=== PATIENT | female | born 1940 | race Caucasian/White ===

== ENCOUNTER → 2018-01-25 | Outpatient (CLI) | payer MEDICARE, BC ==
--- NOTE | 2018-01-25 16:38 | BD ---
EXAMINATION TYPE: Axial Bone Density DATE OF EXAM: 01/25/2018 COMPARISON: NONE CLINICAL HISTORY: 77-year-old female postmenopausal screening for osteoporosis Height: 4 FT 11 1/2 IN Weight: 91 FRAX RISK QUESTIONS: History of Fracture in Adulthood: YES Secondary Osteoporosis: 3. Menopause before 45: YES Current Tobacco Use: YES RISK FACTORS HISTORY OF: Spine Fracture: LUMBAR FX When: 7 YEARS AGO Family History of Osteoporosis: YES Active: YES Postmenopausal woman: BETWEEN AGE [age] Lost more than 2 inches in height since high school: YES MEDICATIONS: Osteoporosis Medications: YES Which medication: FOSAMAX How Lon YEARS Additional Medications: FOSAMAX, ZETIA, LISINOPRIL, BYSTOLIC, CALCIUM, MAGNESIUM, ZINC, VIT D Additional History: EXAM MEASUREMENTS: Bone mineral densitometry was performed using the [employer] System. Bone mineral density as measured about the Lumbar spine is: ----- L1-L4(G/cm2): 1.054 T Score Values are as follows: ----- L2: -1.6 ----- L3: -1.3 ----- L4: -0.1 ----- L1-L4: -1.0 Bone mineral density has: INCREASED 29.3 % since study of: 2004 Bone mineral density about the R hip (g/cm2): 0.590 Bone mineral density about the L hip (g/cm2): 0.574 T Score values are as follows: -----R Neck: -3.2 -----L Neck: -3.3 -----R Total: -3.1 -----L Total: -3.1 Bone mineral density has: DECREASED -11.0 % since study of: 2004 IMPRESSION: Osteoporosis (T Score less than -2.5). There is increased fracture risk and therapy is usually indicated based on age. Re-Screen 1-2 years. NOTE: T-SCORE=SD OF THE YOUNG ADULT MEAN.
== END | disposition home or self-care (01) ==
LOC: RADBDWWP 09:21
PROVIDERS: ATTEND Family Medicine
DX: M81.0 Age-related osteoporosis without current pathological fracture (principal)
CPT/HCPCS: 77080

== ENCOUNTER → 2022-11-14 | Outpatient (CLI) | payer MEDICARE, BC ==
--- NOTE | 2022-11-14 18:10 | CT ---
EXAMINATION TYPE: CT brain w con DATE OF EXAM: 11/14/2022 COMPARISON: NONE HISTORY: TIA CT DLP: 1133.3 mGycm Automated exposure control for dose reduction was used. CONTRAST: CT scan of the head is performed with IV Contrast, patient injected with 80 cc mL of Isovue 300. FINDINGS: There is no abnormal enhancing mass or midline shift identified. The ventricles and sulci are within normal limits in size. The globes are intact and the visualized sinuses are clear. IMPRESSION: Negative contrast enhanced head CT exam.
== END | disposition home or self-care (01) ==
LOC: RADCTMAIN 16:28
PROVIDERS: ATTEND Family Medicine
DX: G45.9 Transient cerebral ischemic attack, unspecified (principal)
CPT/HCPCS: 82565; 84520; 70460; 36415; Q9967